=== PATIENT | male | born 1985 | race African-American/Black ===

== ENCOUNTER 2020-10-23 13:00 | Emergency (ER) | payer SELFPAY ==
[~2020-10-23] VITALS: Ht 180.3 cm; Wt 137.0 kg
[2020-10-23 13:13] VITALS: BP 125/73
[2020-10-23] MEDS ORDERED: AZIT250T PO (14:31)
--- NOTE | 2020-10-23 15:16 | NUR ---
Patient discharged to home in stable condition. Written and verbal after care instructions given. Patient verbalizes understanding of instruction.
== END 2020-10-23 15:16 | disposition home or self-care (01) ==
LOC: ER 13:04
DX: U07.1 COVID-19 (principal); J45.909 Unspecified asthma, uncomplicated
CPT/HCPCS: 71045-TC